=== PATIENT | female | born 1985 | race Caucasian/White ===

== ENCOUNTER 2017-05-28 09:37 | Inpatient (IN) | payer BC ==
[2017-05-28] VITALS (9 sets, daily range): BP systolic 122–133; BP diastolic 70–78; PULSE 88–95; RESP 16–18; TEMP 97.4–98.3
[~2017-05-28] VITALS: Ht 165.1 cm; Wt 119.3 kg
[~2017-05-28 09:37] MED LIST: B-COTAB41 PO; CHOLTAB PO; PREN0.01 PO
[2017-05-28] MEDS: LACTATED RINGER'S 1000 ML INJ 1,000 ML IV SCH (10:00)
[2017-05-28] MEDS ORDERED: SODIUM CHLOR 0.9% 1000 ML INJ 1,000 ML OTHER PRN (10:32)
[2017-05-28] MEDS ORDERED: LIDOCAINE HCL 1% 50 ML VIAL INFIL PRN (10:45)
[2017-05-28] MEDS ORDERED: MINERAL OIL 10 ML VIAL TOPICAL PRN (10:45)
[2017-05-28] MEDS ORDERED: OXYTOCIN 30 UNITS-500ML PREMIX 500 ML IV ONE (10:45)
[2017-05-28] MEDS ORDERED: SODIUM CHLORIDE 0.9% FLUSH 10 ML FLUSH IV FLUSH PRN (10:45)
[2017-05-28] MEDS ORDERED: SODIUM CHLORID 0.9% 500 ML INJ 500 ML IV PRN (10:45)
[2017-05-28] MEDS ORDERED: CITRIC ACID-SODIUM CITRATE LIQ 30 ML UDC PO SCH (10:45)
[2017-05-28] MEDS ORDERED: LIDOCAINE HCL 1% 50 ML VIAL I-DERMAL PRN (10:45)
[2017-05-28] MEDS ORDERED: ONDANSETRON HCL 4 MG/2 ML VIAL IV PRN (10:45)
[2017-05-28 10:49] LABS: AUTOMATED NEUTROPHIL # 10.1 TH/MM3 (1.8-7.7); BASOPHIL % 0.3 % (0.0-2.0); EOSINOPHIL # 0.2 TH/MM3 (0-0.4); EOSINOPHIL % 1.6 % (0.0-4.0); HEMATOCRIT 35.1 % (35.0-46.0); HEMO FLAGS DIFF FINAL; LYMPH % 17.6 % (9.0-44.0); LYMPHOCYTE # 2.4 TH/MM3 (1.0-4.8); MEAN CELL VOLUME 79.9 FL (80.0-100.0); MEAN CORPUSCULAR HEMOGLOBIN 26.8 PG (27.0-34.0); MEAN CORPUSCULAR HGB CONC 33.5 % (32.0-36.0); MONO % 4.9 % (0.0-8.0); NEUT % 75.6 % (16.0-70.0); PLATELET COUNT 220 TH/MM3 (150-450); RED CELL DISTRIBUTION WIDTH 15.7 % (11.6-17.2); WHITE BLOOD COUNT 13.4 TH/MM3 (4.0-11.0)
[2017-05-28] MEDS ORDERED: SODIUM CHLOR 0.9% 1000 ML INJ 1,000 ML IV PRN (10:52)
[2017-05-28 11:12] LABS: BACTERIA, URINE MOD /hpf; BLOOD, URINE NEG (NEG); COMMENT (UR) CULTURE INDICATED; CULTURE IF INDICATED CULTURE INDICATED; GLUCOSE,URINE NEG (NEG); HYALINE CAST, URINE 3 /lpf (RARE); KETONE, URINE TRACE mg/dL (NEG); MUCUS URINE FEW /lpf (OCC); NITRITE,URINE NEG (NEG); PH, URINE 5.5 (5.0-8.5); SQUAMOUS EPITHELIAL CELL URINE 4 /hpf (0-5); URINE COLOR YELLOW (YELLW/STRAW)
[2017-05-28] MEDS: MISOPROSTOL 25 MCG SUPP VAGINAL SCH ×2 (11:25→17:32)
[2017-05-28] MEDS ORDERED: PENICILLIN G POTASSIUM INJ 5,000,000 UNITS in SODIUM CHLORIDE 0.9% INJ 100 ML IV ONE (11:30)
--- NOTE | 2017-05-28 12:12 | MH ---
cc: RICHARD FERNANDEZ DATE OF ADMISSION: 05/28/2017 REASON FOR ADMISSION 1. Intrauterine at 41 weeks, 2 days. 2. For cervical ripening and induction of labor. HISTORY OF PRESENT ILLNESS Ms. Sánchez is a 32-year-old white female para 0-0-0-0. Last menstrual period and early ultrasound put her at 41 weeks and 2 days. At the present time her cervix is not inducible, I cannot even reach it. However, being over 41 weeks, we are putting her in the hospital for induction of labor. The plan is to give her Cytotec and follow it with Pitocin and rupture of membranes. PAST OBSTETRICAL HISTORY Para 0-0-0-0. Her blood type is O+. Her Group B Strep is positive in her urine and on culture. 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 Her last Pap in 10/[address], GC and trichomonas are all negative on 08/2016. PAST MEDICAL HISTORY 1. Remarkable for anemia. 2. Elevated testosterone. PAST SURGICAL HISTORY Negative. SOCIAL HISTORY She does not smoke, drink or take drugs. She is . FAMILY HISTORY Her family history is remarkable for heart disease, high blood pressure, stroke and breast cancer in her mother. ALLERGIES AMOXICILLIN AND PENICILLIN which give her hives. CURRENT MEDICATIONS 1. Nasacort daily. 2. vitamins with DHA one p.o. daily. REVIEW OF SYSTEMS No headaches, no shortness of breath. No chest pressure or chest pain. She reports good movement. No bleeding. No mucous. No regular uterine extractions. PHYSICAL EXAMINATION GENERAL: A well-developed, well-nourished female in no acute distress. VITAL SIGNS: Her blood pressure is 118/76. Her weight is 263. Her height is 65 inches. HEENT: Normocephalic, atraumatic. NECK: Supple. Trachea is in the midline. No thyromegaly or adenopathy. CHEST: Clear to auscultation. HEART: Regular rate and rhythm, without murmur. ABDOMEN: Gravid, nontender. Fundal height is 39. PELVIC EXAMINATION: External genitalia, vulva and vagina is clean. The cervix is not reachable. It is very posterior. EXTREMITIES: No clubbing, cyanosis, edema. ASSESSMENT 1. Intrauterine at 41 weeks, 2 days by early ultrasound and dates. 2. For induction of labor. Cervix is non-inducible. PLAN 1. Go ahead and give her some Cytotec overnight. Once she goes into labor, I will some penicillin for her Group B Strep. 2. Group B positive. We will start penicillin. Although she is allergic, she only gets hives. She is still a candidate to get the Group B Strep and we talked about the risks, benefits and alternatives of that. R. Richard Fernandez MD RJV/SSB /11:24 AM /11:54 AM
[2017-05-28] MEDS ORDERED: PENICILLIN G POTASSIUM INJ 2,500,000 UNITS in SODIUM CHLORIDE 0.9% INJ 100 ML IV SCH (16:00)
[2017-05-28] MEDS: SODIUM CHLORIDE 0.9% FLUSH 10 ML FLUSH IV FLUSH SCH (21:00)
[2017-05-29] VITALS (26 sets, daily range): BP systolic 114–138; BP diastolic 60–85; PULSE 74–104; RESP 16–18; TEMP 97.5–98.7
[2017-05-29] MEDS: ZOLPIDEM TARTRATE 5 MG TAB PO SCH
[2017-05-29] MEDS: MISOPROSTOL 25 MCG SUPP VAGINAL SCH (00:07)
[2017-05-29] MEDS ORDERED: OXYTOCIN 30 UNITS-500ML PREMIX 500 ML IV SCH (04:00)
[2017-05-29] MEDS: SODIUM CHLORIDE 0.9% FLUSH 10 ML FLUSH IV FLUSH SCH ×2 (09:00→21:00)
[2017-05-29] MEDS: LACTATED RINGER'S 1000 ML INJ 1,000 ML IV SCH ×2 (12:05→19:58)
[2017-05-29] MEDS ORDERED: MISOPROSTOL 25 MCG SUPP VAGINAL ONE (20:00)
[2017-05-30] VITALS (135 sets, daily range): BP systolic 94–159; BP diastolic 43–100; PULSE 81–152; RESP 18; TEMP 97.7–98.8
[2017-05-30] MEDS ORDERED: MISOPROSTOL 25 MCG SUPP VAGINAL ONE
[2017-05-30] MEDS: OXYTOCIN 30 UNITS/NS 500ML PREMIX IV SCH ×2 (05:15→20:47)
[2017-05-30] MEDS: SODIUM CHLORIDE 0.9% FLUSH 10 ML FLUSH IV FLUSH SCH ×2 (09:00→20:57)
[2017-05-30] MEDS: LACTATED RINGER'S 1000 ML INJ 1,000 ML IV SCH (10:32)
[2017-05-30] MEDS ORDERED: fentaNYL 2MCG-BUPIV 0.125% INJ 100 ML ONE (12:08)
[2017-05-30] MEDS ORDERED: NO SYSTEM NARCOTICS PRN (14:30)
[2017-05-30] MEDS ORDERED: DO NOT ADMINISTER ANTICOAGULANTS PRN (14:30)
[2017-05-30] MEDS ORDERED: ePHEDrine/NS 25 MG/5 ML SYR IV PRN (14:30)
[2017-05-30] MEDS ORDERED: PENICILLIN G POTASSIUM INJ 5,000,000 UNITS in SODIUM CHLORIDE 0.9% INJ 100 ML IV ONE (15:00)
[2017-05-30] MEDS ORDERED: diphenhydrAMINE HCL 50 MG/ML VIAL IV PUSH PRN (15:00)
[2017-05-30] MEDS: fentaNYL 2MCG-BUPIV 0.125% 100 ML EPIDURAL SCH ×2 (19:30→19:58)
[2017-05-30] MEDS: PENICILLIN G POTASSIUM INJ 2,500,000 UNITS in SODIUM CHLORIDE 0.9% INJ 100 ML IV SCH ×2 (19:31→23:08)
[2017-05-30] MEDS: ZOLPIDEM TARTRATE 5 MG TAB PO SCH (20:57)
[2017-05-30] MEDS ORDERED: BUPIVACAINE HCL PF 0.25% 10 ML VIAL ONE (22:19)
[2017-05-31] VITALS (16 sets, daily range): BP systolic 94–145; BP diastolic 46–104; PULSE 96–123; RESP 16–20; TEMP 98.3–100.8; O2SAT 96–99
[2017-05-31] MEDS ORDERED: OXYTOCIN 10 UNIT/ML AMP ONE (02:17)
[2017-05-31] MEDS ORDERED: MORPHINE SULFATE PF 10 MG/10 ML VIAL ONE (03:26)
[2017-05-31] MEDS ORDERED: SIMETHICONE 80 MG CHEWABLE TAB PO PRN (03:30)
[2017-05-31] MEDS ORDERED: ONDANSETRON HCL 4 MG/2 ML VIAL IV PUSH PRN (03:30)
[2017-05-31] MEDS ORDERED: oxyCODONE/ACETAMINOPHEN 5 MG/325 MG TAB PO PRN (03:30)
[2017-05-31] MEDS ORDERED: MISOPROSTOL 200 MCG TAB PR ONE (03:30)
[2017-05-31] MEDS ORDERED: OXYTOCIN 30 UNITS-500ML PREMIX 500 ML IV ONE ×2 (03:30)
[2017-05-31] MEDS ORDERED: SODIUM CHLORIDE 0.9% FLUSH 10 ML FLUSH IV FLUSH PRN (03:30)
[2017-05-31] MEDS ORDERED: MISOPROSTOL 200 MCG TAB ONE (03:35)
[2017-05-31] MEDS ORDERED: LIDOCAINE 2%/EPINEPHrine PF 1:200,000 20ML SDV NERV BLOCK ONE (03:56)
[2017-05-31] MEDS ORDERED: LACTATED RINGER'S 1,000 ML BAG IV ONE (03:56)
[2017-05-31] MEDS ORDERED: ePHEDrine/NS 50 MG/5 ML SYR IV ONE (03:56)
[2017-05-31] MEDS ORDERED: EPIDURAL-NO SYSTEMIC NARCOTICS PRN (05:30)
[2017-05-31] MEDS ORDERED: EPIDURAL-DIPHENHYDRAMINE HCL 50 MG/ML VIAL IV PUSH PRN (05:30)
[2017-05-31] MEDS ORDERED: EPIDURAL-NALOXONE HCL 0.4 MG/ML AMP IV PRN (05:30)
[2017-05-31] MEDS ORDERED: EPIDURAL-DO NOT ADMINISTER ANTICOAGULANTS PRN (05:30)
[2017-05-31] MEDS ORDERED: EPIDURAL-DIPHENHYDRAMINE HCL 50 MG CAP PO PRN (05:30)
[2017-05-31] MEDS: IBUPROFEN 600 MG TAB PO PRN ×3 (05:41→17:44)
[2017-05-31] MEDS ORDERED: ceFAZolin 2 GM PREMIX 50 ML IV ONE (06:00)
[2017-05-31] MEDS ORDERED: LACTATED RINGER'S 1000 ML INJ 1,000 ML IV SCH (08:27)
--- NOTE | 2017-05-31 08:41 | MP ---
cc: Lynda FERNANDEZ MD DATE OF SURGERY 05/31/2017 PREOPERATIVE DIAGNOSIS 1. Arrest of active phase of labor 2. Failed induction POSTOPERATIVE DIAGNOSIS 1. Arrest of active phase of labor 2. Failed induction PROCEDURE Primary low transverse section. ANESTHESIA Epidural SURGEON Rayshawn Fernandez MD FINDINGS Gravid uterus, normal tubes, normal ovaries, normal male fetus, weight 9 pounds, 5 ounces, 's 4, 5, 5, 8. The baby came out with good tone, crying and then they had some trouble ventilating him. He may have had a mucous plug. INDICATIONS FOR THE PROCEDURE This is a patient who had a two-day induction. She had Cytotec the first and second night and Pitocin the first and second day. On the second day, she started to progress. She progressed to 2 about 07:00 p.m. She progressed to 7 and then she arrested labor. At that time, we decided to proceed with a primary low transverse section. PROCEDURE IN DETAIL The patient was taken to the operating room, identified by name band and verbally. The time out was done and patient was prepped and draped in the usual sterile fashion for section. A Pfannenstiel incision was made, carried down to the fascia. The fascia was taken off the rectus muscle by blunt and sharp dissection. The rectus muscles were spread bluntly and the peritoneum entered under direct vision without difficulty. The incision was extended and a bladder blade was placed. A bladder flap was created in the usual fashion and the uterus was incised transversely along the lower uterine segment. Once the uterine cavity was entered, clear fluid was noted. The baby's head was very low in the pelvis after pushing for two hours and the vertex was grasped. With fundal pressure, we could not quite get the head to deliver, so we used a suction device which the baby delivered easily. The hypopharynx and nasopharynx were suctioned and the remainder of the infant was delivered without difficulty. The cord doubly clamped and cut and handed to the resuscitation team who was present. The cord blood was obtained and the placenta was delivered manually. The uterus was curettaged twice with a wet lap and the uterine incision was repaired with 0 Vicryl in a running locking fashion in two layers, the second layer imbricating the first. Once this had been accomplished, all incisions were carefully inspected. Hemostasis was excellent. The uterus was delivered back into the abdomen and the gutters were cleaned of blood and debris. The rectus muscles were reapproximated with 0 Vicryl in a running fashion and the fascia was repaired with 0 Vicryl in a running fashion bilaterally. The subcu was repaired with two layers of 3-0 Vicryl and the skin was repaired with a 4-0 Monocryl in a subcuticular fashion. The wound was sterilely dressed. She tolerated the procedure well and went to the recovery room in satisfactory condition. R. MD MARTHA Mendoza/CELE /3:51 AM /8:26 AM
[2017-05-31 09:57] LABS: AUTOMATED NEUTROPHIL # 19.2 TH/MM3 (1.8-7.7); BASOPHIL % 0.2 % (0.0-2.0); HEMATOCRIT 26.4 % (35.0-46.0); HEMO FLAGS DIFF FINAL; LYMPHOCYTE # 1.5 TH/MM3 (1.0-4.8); MEAN CELL VOLUME 80.5 FL (80.0-100.0); MEAN CORPUSCULAR HEMOGLOBIN 26.7 PG (27.0-34.0); MEAN CORPUSCULAR HGB CONC 33.2 % (32.0-36.0); MONO % 4.1 % (0.0-8.0); NEUT % 88.7 % (16.0-70.0); PLATELET COUNT 170 TH/MM3 (150-450); RED BLOOD COUNT 3.28 MIL/MM3 (4.00-5.30); RED CELL DISTRIBUTION WIDTH 15.6 % (11.6-17.2); WHITE BLOOD COUNT 21.7 TH/MM3 (4.0-11.0)
[2017-05-31] MEDS: DOCUSATE SODIUM 50 MG/SENNA 8.6 MG TAB PO PRN (11:11)
[2017-05-31] MEDS ORDERED: OXYTOCIN 30 UNITS-500ML PREMIX 500 ML IV PRN (13:30)
[2017-05-31] MEDS: oxyCODONE/ACETAMINOPHEN 5 MG/325 MG TAB PO PRN ×2 (17:44→22:06)
[2017-06-01] VITALS: BP 103/53; PULSE 94; RESP 14; TEMP 98.4
[2017-06-01] MEDS: IBUPROFEN 600 MG TAB PO PRN ×4 (03:03→21:41)
[2017-06-01] MEDS: oxyCODONE/ACETAMINOPHEN 5 MG/325 MG TAB PO PRN ×4 (03:03→21:41)
[2017-06-01 08:00] VITALS: BP 94/61; PULSE 93; RESP 18
[2017-06-01] MEDS ORDERED: OXYC1TAB63 PO (08:07)
[2017-06-01] MEDS ORDERED: IBUP-232 PO (08:07)
[2017-06-01 08:50] VITALS: BP 94/61; PULSE 93; RESP 18; TEMP 98.7
[2017-06-01] MEDS: DOCUSATE SODIUM 50 MG/SENNA 8.6 MG TAB PO PRN (09:00)
--- NOTE | 2017-06-01 12:02 | HHI.OB ---
Subjective Post Operative Day: 1 Objective Vitals/I&O Vital Signs Date Time Temp Pulse Resp B/P Pulse Ox O2 Delivery O2 Flow Rate FiO2 06/01/17 08:50 93 18 94/61 06/01/17 08:50 98.7 06/01/17 08:00 93 18 94/61 06/01/17 00:00 98.4 94 14 103/53 05/31/17 20:00 105/53 05/31/17 20:00 99.2 98 16 05/31/17 17:45 98.5 97 18 115/72 05/31/17 13:00 98.3 98 18 94/63 Result Diagram: 05/31/17 0808 Objective Remarks GENERAL: Well-nourished, well-developed patient. CARDIOVASCULAR: Regular rate and rhythm without murmurs, gallops, or rubs. RESPIRATORY: Breath sounds equal bilaterally. No accessory muscle use. ABDOMEN/GI: Abdomen soft, non-tender, bowel sounds present. Incision: DRESSING, Clean, dry and intact. Fundus: Firm, non-tender at umbilicus. GENITOURINARY: Light to moderate bleeding, MON TO BSD YELLOW EXTREMITIES: No cyanosis or edema, non-tender, without signs of DVT. Medications and IVs Current Medications Medications (Trade) Dose Ordered Sig/Minerva Route Start Time Stop Time Status Last Admin (NS Flush) 2 ml BID IV FLUSH 05/31/17 09:00 (NS Flush) 2 ml UNSCH PRN IV FLUSH 05/31/17 03:30 (Mylicon Chew) 80 mg QID PRN PO 05/31/17 03:30 (Motrin) 600 mg Q6H PRN PO 05/31/17 03:30 06/01/17 09:00 (Percocet 5-325 Mg) 1 tab Q4H PRN PO 05/31/17 03:30 05/31/17 11:12 (Percocet 5-325 Mg) 2 tab Q4H PRN PO 05/31/17 03:30 06/01/17 09:01 (Janine-Colace) 2 tab Q12H PRN PO 05/31/17 03:30 06/01/17 09:00 (M-M-R Ii Inj) 0.5 ml ONCE ONCE SQ 06/01/17 16:00 06/01/17 16:01 (Boostrix Inj) 0.5 ml ONCE ONCE IM 06/01/17 16:00 06/01/17 16:01 05/31/17 22:07 (Zofran Inj) 4 mg Q6H PRN IV PUSH 05/31/17 03:30 Assessment/Plan Problem List: (1) Anemia Plan: WILL TREAT PP (2) S/P primary low transverse Plan: ROUTINE Assessment and Plan POD #1, AFTER FAILED 2 DAY INDUCTION PT DOING WELL PAIN WELL MANAGED WITH ORAL PAIN MEDICATION PT WILL GET MON OUT AND SHOWER TODAY PT AND BONDING ROUTINE Discharge Planning CONSIDER DC IN 1-2 DAYS Judit Palomares Jun 01, 2017 12:02
--- NOTE | 2017-06-01 12:03 | HHI.DCPOC ---
Discharge Care Plan Diagnosis: (1) S/P primary low transverse (2) Anemia Your Health Problems Are: delivery Report Symptoms to Your Doctor -Temperature above 100.5 degrees -Redness, of incision or excessive or foul smelling drainage -Unusual pain or calf pain -Increased vaginal bleeding -Painful or difficulty urinating -Feelings of extreme sadness or anxiety after 2 weeks Goals to Promote Your Health * To prevent worsening of your condition and complications * To maintain your health at the optimal level Directions to Meet Your Goals Take your medications as prescribed Follow your dietary instruction Follow activity as directed Ensure plenty of rest for recovery Drink fluids for hydration Keep your appointments as scheduled Take your immunizations and boosters as scheduled If your symptoms worsen call your PCP, if no PCP go to Urgent Care Center or Emergency Room Smoking is Dangerous to Your Health. Avoid second hand smoke Call the 24-hour crisis hotline for domestic abuse at Judit Palomares Jun 01, 2017 12:03
[2017-06-01] MEDS ORDERED: DIPHTH/TETANUS/ACEL PERTUSSIS (BOOSTER) 0.5 ML VIAL/PFS IM ONE (16:00)
[2017-06-01] MEDS ORDERED: MEASLES, MUMPS, RUBELLA VACCINE 0.5 ML VIAL SQ ONE (16:00)
[2017-06-01 19:39] VITALS: BP 118/66; PULSE 101; RESP 18; TEMP 98
[2017-06-02] MEDS: IBUPROFEN 600 MG TAB PO PRN ×4 (03:19→22:03)
[2017-06-02] MEDS: oxyCODONE/ACETAMINOPHEN 5 MG/325 MG TAB PO PRN ×4 (03:20→22:04)
[2017-06-02 08:00] VITALS: BP 132/67; PULSE 97; RESP 18; TEMP 98.3
[2017-06-02] MEDS: SODIUM CHLORIDE 0.9% FLUSH 10 ML FLUSH IV FLUSH SCH (09:00)
[2017-06-02] MEDS: DOCUSATE SODIUM 50 MG/SENNA 8.6 MG TAB PO PRN (09:27)
--- NOTE | 2017-06-02 10:08 | HHI.OB ---
Subjective Post Operative Day: 2 Remarks s/p primary LTCD after prolonged 2+ day induction; weighed >9# Objective Vitals/I&O Vital Signs Date Time Temp Pulse Resp B/P Pulse Ox O2 Delivery O2 Flow Rate FiO2 06/02/17 08:00 98.3 97 18 132/67 06/01/17 19:39 98.0 101 18 118/66 Result Diagram: 05/31/17 0808 Objective Remarks GENERAL: Well-nourished, well-developed patient. Obese. CARDIOVASCULAR: Regular rate and rhythm without murmurs, gallops, or rubs. RESPIRATORY: Breath sounds equal bilaterally. No accessory muscle use. ABDOMEN/GI: Abdomen soft, non-tender, bowel sounds present. Incision: Clean, dry and intact. Fundus: Firm, non-tender at umbilicus. GENITOURINARY: Light bleeding EXTREMITIES: No cyanosis or edema, non-tender, without signs of DVT. Medications and IVs Current Medications Medications (Trade) Dose Ordered Sig/Minerva Route Start Time Stop Time Status Last Admin (NS Flush) 2 ml BID IV FLUSH 05/31/17 09:00 (NS Flush) 2 ml UNSCH PRN IV FLUSH 05/31/17 03:30 (Mylicon Chew) 80 mg QID PRN PO 05/31/17 03:30 (Motrin) 600 mg Q6H PRN PO 05/31/17 03:30 06/02/17 09:27 (Percocet 5-325 Mg) 1 tab Q4H PRN PO 05/31/17 03:30 05/31/17 11:12 (Percocet 5-325 Mg) 2 tab Q4H PRN PO 05/31/17 03:30 06/02/17 09:27 (Janine-Colace) 2 tab Q12H PRN PO 05/31/17 03:30 06/02/17 09:27 (Zofran Inj) 4 mg Q6H PRN IV PUSH 05/31/17 03:30 Assessment/Plan Problem List: (1) S/P primary low transverse Plan: ROUTINE (2) Anemia Plan: WILL TREAT PP Assessment and Plan POD #2, AFTER FAILED 2 DAY INDUCTION PT DOING WELL BUT STILL HAVING SOME PAIN ISSUES, NOT YET MEETING D/C CRITERIA PT AND BONDING ROUTINE D/C PLANNING FOR [facility] Discharge Planning hopefully tomorrow 06/03/17 Yumi Iraheta MD Jun 02, 2017 10:08
[2017-06-02] MEDS ORDERED: SENN1TAB PO (10:15)
[2017-06-02 19:31] VITALS: BP 124/73; PULSE 108; RESP 18; TEMP 98.5
[2017-06-02] MEDS: DOCUSATE SODIUM 50 MG/SENNA 8.6 MG TAB PO SCH (22:03)
[2017-06-03] MEDS: oxyCODONE/ACETAMINOPHEN 5 MG/325 MG TAB PO PRN ×3 (01:59→10:19)
[2017-06-03] MEDS: IBUPROFEN 600 MG TAB PO PRN (06:19)
--- NOTE | 2017-06-03 08:48 | HHI.OB ---
Subjective Post Operative Day: 3 Objective Vitals/I&O Vital Signs Date Time Temp Pulse Resp B/P Pulse Ox O2 Delivery O2 Flow Rate FiO2 06/02/17 19:31 124/73 06/02/17 19:31 98.5 108 18 Result Diagram: 05/31/17 0808 Objective Remarks GENERAL: Well-nourished, well-developed patient. Obese. CARDIOVASCULAR: Regular rate and rhythm without murmurs, gallops, or rubs. RESPIRATORY: Breath sounds equal bilaterally. No accessory muscle use. ABDOMEN/GI: Abdomen soft, non-tender, bowel sounds present. Incision: Clean, dry and intact. Fundus: Firm, non-tender at umbilicus. GENITOURINARY: Light bleeding EXTREMITIES: No cyanosis or edema, non-tender, without signs of DVT. Medications and IVs Current Medications Medications (Trade) Dose Ordered Sig/Minerva Route Start Time Stop Time Status Last Admin (NS Flush) 2 ml BID IV FLUSH 05/31/17 09:00 (NS Flush) 2 ml UNSCH PRN IV FLUSH 05/31/17 03:30 (Mylicon Chew) 80 mg QID PRN PO 05/31/17 03:30 (Motrin) 600 mg Q6H PRN PO 05/31/17 03:30 06/03/17 06:19 (Percocet 5-325 Mg) 1 tab Q4H PRN PO 05/31/17 03:30 05/31/17 11:12 (Percocet 5-325 Mg) 2 tab Q4H PRN PO 05/31/17 03:30 06/03/17 06:19 (Zofran Inj) 4 mg Q6H PRN IV PUSH 05/31/17 03:30 (Janine-Colace) 1 tab Q12H PO 06/02/17 21:00 06/02/17 22:03 Assessment/Plan Problem List: (1) S/P primary low transverse Plan: ROUTINE (2) Anemia Assessment and Plan POD #3, AFTER FAILED 2 DAY INDUCTION PT DOING WELL PT AND BONDING ROUTINE D/C PLANNING FOR TODAY Discharge Planning today Yumi Iraheta MD Jun 03, 2017 08:48
[2017-06-03] MEDS: SODIUM CHLORIDE 0.9% FLUSH 10 ML FLUSH IV FLUSH SCH (09:00)
[2017-06-03 09:35] VITALS: BP 114/72; PULSE 58; RESP 16; TEMP 98.7
[2017-06-03] MEDS: DOCUSATE SODIUM 50 MG/SENNA 8.6 MG TAB PO SCH (10:19)
== END 2017-06-03 12:23 | disposition home or self-care (01) | DRG 766 ==
LOC: H2EB 09:37 → H1EA 05-31 05:32
PROVIDERS: ADMIT Obstetrics & Gynecology; ATTEND Obstetrics & Gynecology
PROC: 10D00Z1 Extraction of Products of Conception, Low, Open Approach (ICD-10-PCS; principal; 2017-05-28)
PROC: 00HU33Z Insertion of Infusion Device into Spinal Canal, Percutaneous Approach (ICD-10-PCS; 2017-05-28)
PROC: 3E0R3CZ (ICD-10-PCS; 2017-05-28)
DX: O62.1 Secondary uterine inertia (principal); O61.9 Failed induction of labor, unspecified; D64.9 Anemia, unspecified; Z37.0 Single live birth; O99.02 Anemia complicating childbirth; O48.0 Post-term pregnancy; Z3A.41 41 weeks gestation of pregnancy; O99.824 Streptococcus B carrier state complicating childbirth
CPT/HCPCS: 59025; 81001; 85025; 86900; 86901; 87086; 88307; 90715; J0690; J2274; J2540; J2590; J3010; J7120